=== PATIENT | male | born 1950 | race Caucasian/White ===

== ENCOUNTER 2021-07-13 16:02 | Emergency (ER) | payer OTHER, BC ==
[~2021-07-13] VITALS: Ht 177.8 cm; Wt 74.8 kg
[2021-07-13 20:21] VITALS: BP 167/92
[2021-07-13] MEDS ORDERED: NORCO5 PO (20:39)
[2021-07-13] MEDS ORDERED: CEPHALEXIN500 MG PO (20:39)
== END 2021-07-13 20:45 | disposition home or self-care (01) ==
LOC: ER 16:02
DX: S62.630A Displaced fracture of distal phalanx of right index finger, initial encounter for closed fracture (principal); X58.XXXA Exposure to other specified factors, initial encounter; Y93.89 Activity, other specified; Y92.89 Other specified places as the place of occurrence of the external cause; Y99.8 Other external cause status